=== PATIENT | female | born 2000 | race Caucasian/White ===

== ENCOUNTER 2022-08-15 11:39 | Outpatient (CLI) | payer OTHER, SELFPAY ==
[2022-08-15 15:04] LABS: Vitamin D 25 Hydroxy* 75 ng/mL (30-80)
[2022-08-15 15:17] LABS: TSH With Reflex to FT4* 0.979 uIU/mL (0.270-4.200)
[2022-08-15 15:23] LABS: Vitamin B12* 443 pg/mL (243-894)
[2022-08-16 16:54] LABS: Prolactin 17.5 ng/mL (2.8-29.2)
== END 2022-08-15 11:40 | disposition home or self-care (01) ==
PROVIDERS: PCP Internal Medicine; Visit Provider Internal Medicine
DX: N91.1 Secondary amenorrhea (principal)
CPT/HCPCS: 82306; 82607; 83001; 84146; 84443

== ENCOUNTER 2022-08-27 11:23 | Outpatient (CLI) | payer OTHER, SELFPAY ==
[2022-08-28 12:52] LABS: Estradiol Premenol Female 43 pg/mL
[2022-08-28 14:41] LABS: Follicle Stimulating Hormone 5.4 IU/L
== END 2022-08-27 11:24 | disposition home or self-care (01) ==
PROVIDERS: PCP Internal Medicine; Visit Provider Physician Assistant
DX: N91.1 Secondary amenorrhea (principal)
CPT/HCPCS: 82670; 83001

== ENCOUNTER 2022-08-28 14:32 | Outpatient (CLI) | payer SELFPAY ==
--- NOTE | 2022-08-28 14:30 | CRLHL7_ITS ---
For Patients: As a result of the Cures Act, medical imaging exams and procedure reports are released immediately into your electronic medical record. You may view this report before your referring provider. If you have questions, please contact your health care provider. DXA BONE MINERAL DENSITY STUDY 08/28/2022 Current height (in): 62.0. Weight (lb): 110.0. Menopause age: Not applicable. Ethnicity: White. 1. Have you had a previous hip or vertebral fracture? No. 2. Have you had any fractures during your adult life which did not result from significant trauma (e.g., auto accident)? Yes. 3. Did either of your parents have a hip fracture? No. 4. Do you smoke? No. 5. Have you ever taken Glucocorticoids? No. 6. Do you have rheumatoid arthritis? No. 7. Do you have secondary osteoporosis? No. 8. Do you drink 3 or more alcoholic drinks per day? No. 9. Are you being treated for osteoporosis? No. 10. Have you ever taken any of the following medications: Actonel, Evista, Fosamax, Miacalcin, Reclast, Boniva, Forteo, HRT (i.e. estrogen/hormone therapy), Protelos, Prolia, Vitamin D, Calcium, other ??? please specify. ANSWER: Yes, vitamin D, calcium. 11. Do you have any of the following medical conditions: Anorexia or bulimia, asthma or emphysema, end stage renal disease, hyperparathyroidism, any seizure disorders, cancer, inflammatory bowel diseases, hysterectomy, other ??? please specify. ANSWER: No. 12. What was your maximum height (inches)? 62. 13. Do you perform weight bearing exercise regularly? Yes. 14. Do you regularly consume dairy products? No. 15. Do you drink caffeinated beverages? Yes. 16. At what age did your period start? 18. 17. Are you premenopausal? Yes. 18. How many full-term pregnancies have you had? Zero. 19. Have you ever missed your period for more than 6 months in a row (not including or menopause)? Yes. TECHNIQUE: Bone mineral density study was performed using the [email or web address]. FINDINGS: The results of the study expressed as bone mineral density (BMD) are as follows: Lumbar spine L1 to L4: BMD: 0.839 g/cm2. Z-score: -1.9. Neck Left: BMD: 0.693 g/cm2. Z-score: -1.4. Right: BMD: 0.647 g/cm2. Z-score: -1.8. Total Left: BMD: 0.873 g/cm2. Z-score: -0.6. Right: BMD: 0.802 g/cm2. Z-score: -1.2. IMPRESSION: Lower limits of normal bone density based on Z-score measurements. However, Z-score measurements do not meet criteria for osteopenia at this time. Cali Hayes M.D. Diagnostic Radiologist [email or web address] MARY/bhe / be/Dictated by: Cali Hayes MD @ 08/29/2022 10:58:00 AM (Electronically Signed)
== END 2022-08-28 14:33 | disposition home or self-care (01) ==
LOC: RAD 14:33
PROVIDERS: PCP Internal Medicine; Visit Provider Internal Medicine
DX: N91.1 Secondary amenorrhea (principal)
CPT/HCPCS: 77080